=== PATIENT | female | born 1945 ===

== ENCOUNTER 2023-04-05 05:57 | Day surgery (SDC) | payer OTHER ==
[~2023-04-05] VITALS: Ht 142.2 cm; Wt 61.7 kg
[2023-04-05] MEDS ORDERED: TYLENOL325 MG PO (10:37)
== END 2023-04-05 14:45 | disposition home or self-care (01) ==
LOC: CIR.AMB 05:57
PROVIDERS: ATTEND Obstetrics & Gynecology Gynecology
DX: N84.1 Polyp of cervix uteri (principal); N84.0 Polyp of corpus uteri; Z20.822 Contact with and (suspected) exposure to COVID-19; Z88.2 Allergy status to sulfonamides; Z88.6 Allergy status to analgesic agent